=== PATIENT | male | born 1940 | race Caucasian/White ===

== ENCOUNTER 2018-08-20 05:35 | Inpatient (IN) ==
--- NOTE | 2018-08-17 13:31 | MH ---
cc: Debbie Dennis MD DATE OF ADMISSION: 08/20/2018 ADMITTING DIAGNOSIS: Osteoarthritic degeneration of left knee, now being admitted for left total knee arthroplasty. HISTORY OF PRESENT ILLNESS: This pleasant 77-year-old male is being admitted today for a left total knee arthroplasty due to severe pain from osteoarthritic degeneration. OTHER PAST HISTORY: He has a history of type 2 diabetes, hyperlipidemia, hypertension. CURRENT MEDICATIONS: 1. Atorvastatin. 2. Doxepin. 3. Finasteride. 4. Hydrochlorothiazide. 5. Verapamil. ALLERGIES: He also states he gets an allergic reaction to unknown allergens, which causes different parts of his body to swell which lasts 24 hours. PAST SURGICAL HISTORY: None. REVIEW OF SYSTEMS: Noncontributory. FAMILY HISTORY: Noncontributory. SOCIAL HISTORY: Does not smoke or drink. ALLERGIES: ALLERGIC TO IODINE AND IODINE-CONTAINING PRODUCTS. PHYSICAL EXAMINATION: GENERAL: A 77-year-old male, well developed, well nourished, alert and oriented x3, complaining of pain in the left knee. VITAL SIGNS: Blood pressure 136/80, pulse 56 and regular, respirations 12, temperature 97.7, pulse oximetry 98% on room air. HEENT: Eyes: PERRL, EOMI. Ears, nose, mouth clear. NECK: Supple. LUNGS: Clear. HEART: Regular rate. ABDOMEN: Soft, positive bowel sounds, nontender. EXTREMITIES: Reveals the left knee to be tender with crepitans on range of motion and gentle varus deformity. He is neurovascularly intact to the toes. IMPRESSION: Severe painful osteoarthritic degeneration of the left knee. PLAN: Admission for left total knee arthroplasty today. The patient plans on going to snf facility after surgical stay in the hospital. MD CHET Lobato/gume/sancho , 12:36 PM , 12:40 PM
[2018-08-20] MEDS ORDERED: Sodium Chlor 0.9% Inj 80 ML, Bupivacaine Liposo PF 1.3% Inj 20 ML, Bupivacaine PF 0.25%... P-ARTICULR SCH ×3 (06:14)
[2018-08-20] MEDS ORDERED: Sodium Chlor 0.9% Inj 500 ML IV.CONT ONE (06:15)
[2018-08-20] MEDS ORDERED: Chlorhexidine 4% Topical 120 APPLIC/120 ML Bottle TOPICAL SCH (06:15)
[2018-08-20] MEDS ORDERED: Metoprolol Tartrate 25 MG Tablet PO ONE (06:15)
[2018-08-20] MEDS ORDERED: Chlorhexidine Gluconate 2% 1 Pack (2 Cloths) TOPICAL ONE (06:15)
[2018-08-20] MEDS ORDERED: ceFAZolin Inj 20 ML ONE (06:28)
[2018-08-20] MEDS ORDERED: TRANEXAMIC ACID IV.SIG SCH (06:30)
[2018-08-20] MEDS ORDERED: SODIUM CHLOR 0.9% IV.SIG SCH (06:30)
[2018-08-20] MEDS ORDERED: ceFAZolin 2 GM Premix Inj 2 GM/50 ML PIGGYBACK IV.SIG SCH (07:00)
[2018-08-20] MEDS ORDERED: Bupivacaine 0.5% Inj 50 ML MDV Vial ONE (07:03)
[2018-08-20] MEDS ORDERED: Tetracaine PF 1% Inj 20 MG/2 ML Ampul ONE (07:23)
[2018-08-20] MEDS ORDERED: Bisacodyl 10 MG Supp RECTAL PRN (07:34)
[2018-08-20] MEDS ORDERED: Morphine Sulfate Inj 2 MG/ML Vial IV.PUSH PRN (07:34)
[2018-08-20] MEDS ORDERED: Post-op Orders (for Pharmacy) OTHER STA (07:34)
[2018-08-20] MEDS ORDERED: Tranexamic Acid Inj 1,000 MG in Sodium Chlor 0.9% Inj 100 ML IV.SIG SCH (10:00)
[2018-08-20] MEDS: hydroCHLOROthiazide 25 MG Tablet PO SCH (10:43)
[2018-08-20] MEDS: Multivitamin/Minerals Therapeutic Tablet PO SCH ×2 (10:44→22:11)
[2018-08-20] MEDS: Senna/Docusate Sodium 8.6/50 MG Tablet PO SCH ×2 (10:44→22:10)
--- NOTE | 2018-08-20 10:53 | XR ---
EXAM DATE: 08/20/2018 10:50 AM EST AGE/SEX: 77 years / Male INDICATIONS: Post-op left knee. CLINICAL DATA: This is the patient's initial encounter. Patient reports that signs and symptoms have been present for 1 day and indicates a pain score of 0/10. MEDICAL/SURGICAL HISTORY: None. None. COMPARISON: No prior exams available for comparison. FINDINGS: AP and lateral views of the knee following arthroplasty reveals a prosthesis in anatomic alignment. F racture is not appreciated. Surgical drain is evident CONCLUSION: Status post total knee arthroplasty. Carter Woodall MD FACR Electronically signed by: Carter Woodall MD Board Certified Radiologist 08/20/2018 10:52 AM EST
--- NOTE | 2018-08-20 11:36 | MP ---
cc: Debbie Dennis MD DATE OF OPERATION: 08/20/2018 Corrected Copy: 08/23/18 PREOPERATIVE DIAGNOSIS: Osteoarthritic degeneration, left knee POSTOPERATIVE DIAGNOSIS: Osteoarthritic degeneration, left knee. PROCEDURE PERFORMED: Left total knee arthroplasty using Consensus components; size 6 femur, 4 tibia, 10 standard insert and size 2 patella with 2 batches of antibiotic-impregnated Biomet cement. SURGEON: Debbie Dennis MD REAL ESTATE AGENT/BROKER: Isis Schofield APRN. ANESTHESIA: Spinal. PROCEDURE WAS FOLLOWS: After successful induction of anesthesia, the patient is placed on the operating room table in the supine position. The knee is prepped and draped in the usual manner. A tourniquet is inflated at the upper thigh and set to 300 mmHg pressure after exsanguination of the lower extremity. A longitudinal incision is made extending from 3 inches proximal to the superior pole of the patella, across the patella in longitudinal fashion, and down past the insertion of the tibial tubercle into the proximal tibia. The incision is carried down through subcutaneous tissue along the medial aspect of the patella and retinaculum, down through the capsule to expose the knee joint. The patella and patellar tendon are freed up enough to allow the patella to be inverted and retracted off the lateral side of the knee joint. The knee joint is left exposed. Small osteophytes are removed. All soft tissue is removed to allow proper position of the femoral and tibial cutting jig guide. The first femoral jig is then inserted along the distal end of the femur after first measuring to decide whether this is a small, medium, or large component. The notch is then drilled and the tibial cutting guide inserted into the femoral cutting guide, along with the ankle brace to allow for proper measurement of the tibial cutting surface that needed to be resected. Pins are inserted into the tibial cutting jig and femoral cutting jig to hold them in place. An oscillating saw is then used to resect the surface of the tibia. The surface of the tibia is then completely removed using sharp and blunt dissection. The anterior and posterior cuts of the femur are then made as well using an oscillating saw through the cutting guide. All guides are then removed and the varus/valgus angulation cutting guide applied to the femur for proper measurement of the proper amount of valgus. The anterior cutting guide for the femur is then inserted at the anterior femoral cuts made. Next, the first block trial is inserted into the femur to allow for proper condyle drill holes to be made which are then made followed by removal of the bone between the condyles using an oscillating saw as well as the bone removed at the most posterior surface of the condyle. After this, this guide is removed and the chamfer cuts made using the chamfer cutting guide from both anterior and posterior. Next, the femoral trial is then inserted, the tibial surface reflected anterior to expose the tibial surface and a tibial stem guide is inserted after first measuring for a standard, standard plus, large, or large plus surface to be used. After the stem is impacted the trial tibial surface is applied followed by the trial meniscal components. After full range of motion is found with the appropriate length meniscal components varying the patella is prepared by resecting the posterior aspect of the patella using an oscillating saw, inserting a trial. The trial is then removed and the cruciate cutting guide applied using the bur to cut the cruciate cuts. After cruciate cuts are made all trials are removed. The wound is irrigated copiously with antibiotic solution and Water Pik and the actual components inserted into place using the aforementioned components. After the cement has hardened and the components are found to have full range of motion with no instability, the tourniquet is deflated, total tourniquet time being 44 minutes at 300 mmHg pressure. The wound again is irrigated copiously with antibiotic solution, meticulous hemostasis achieved. Two Autovac tubes inserted, followed by closure of the deep fascia with both running and interrupted #1 Vicryl suture, subcutaneous tissue approximated using interrupted 2-0 Vicryl sutures, and skin approximated with tavares. Wet and dry dressing is applied to the wound followed by Xeroform gauze, sterile dressing and knee immobilizer. The patient tolerated the procedure well and left the Operating Room in satisfactory condition. ESTIMATED BLOOD LOSS: 200 mL. COUNTS: Sponge and suture counts were correct. COMPONENTS: The components used were size 6 femur, 4 tibia, 10 standard insert and size 2 patella with 2 batches of antibiotic-impregnated Biomet cement. Tourniquet is deflated, total tourniquet time being 44 minutes at 300 mmHg pressure. Meticulous hemostasis achieved; 120 mL of a mixture of Exparel with normal saline, 0.25% Marcaine plain was injected around the knee joint for extra pain control. Deep fascia approximated with running #2 Quill. Subcutaneous tissue approximated using interrupted running 2-0 and 3-0 Monocryl suture and Prineo dressing, knee immobilizer. No drain utilized. The patient tolerated the procedure well and left the operating room in satisfactory condition. Isis Schofield APRN, was present during the entire procedure to include patient positioning as well as the procedure itself. The medical necessity of the nurse practitioner certified surgical tech/first assistant was indicated in this case due to the surgical complexity of the case itself and during the surgical case, the surgical services tech was working the back table while my surgical resident CHANI was directly assisting me. J. MD CHET Sy/disha , 10:32 AM , 10:38 AM
[2018-08-20] MEDS: ceFAZolin 1 GM Premix Inj 1 GM/50 ML PIGGYBACK IV.SIG SCH ×2 (13:40→22:10)
--- NOTE | 2018-08-20 14:27 | P.BOP ---
- Preoperative Diagnosis (1) Osteoarthritis of left knee - Postoperative Diagnosis (1) Status post total left knee replacement using cement Date of procedure: 08/20/18 Procedure: Left Total Knee Arthroplasty Implants: see implant record Anesthesia: GETA Surgeon: Juan Dennis MD Auto Body Mechanic: Isis Schofield Estimated blood loss (mL): 200 Tourniquet time (min): 44 (300 mmHg) Urine output (mL): 0 (no romero) Pathology: none sent Condition: stable Disposition: PACU
--- NOTE | 2018-08-20 14:51 | P.CON ---
History of Present Illness Primary Care Provider: Vasiliy Kerr MD Chief Complaint: Left knee pain History of Present Illness: Patient is a very pleasant 77-year-old male with past medical history of hypertension, hyperlipidemia, arthritis who presented to same-day surgery for left knee surgery by Dr. Dennis. Hospitalist is consulted for evaluation of medical conditions. The patient was seen after the surgery in PACU. He is in not acute distress. Says he does not have any pain at this time. Surgery went very well. Is moving his toes. No chest pain or shortness of breath. No nausea or vomiting no diarrhea or constipation. No urinary complaints. Review of Systems All other systems reviewed negative except as stated in HPI PMFSH - History History Provided By: Patient - Medical History Medical History: Medical History (Last Reviewed 08/20/18 @ 17:59 by Nataliia Graves MD) Vertigo Wears glasses Diabetes High cholesterol Hypertension Left knee pain Prostate disorder Wears hearing aid in both ears - Surgical History Surgical History: Surgical History (Last Reviewed 08/20/18 @ 17:59 by Nataliia Graves MD) H/O hernia repair History of prostate surgery - Family History Family History: Family History (Last Updated 08/20/18 @ 18:00 by Nataliia Graves MD) Father Hypertension Stroke Heart problem - Social History I have reviewed the patient's Social History: Yes - Tobacco History Second Hand Smoke Exposure: No Tobacco Use In Past 30 Days: No Smoking Status: Never smoker - Alcohol History How Often Do You Have a Drink Containing Alcohol: Monthly or less - Substance Use History Substance History: No History of Abuse - Travel History Recent Travel in the [place] Within the Last 8 Weeks: No Recent Travel Out of the Country Within the Last 8 Weeks: No Medications and Allergies Active Medications: Active Medications Hydrocodone Bitart/Acetaminophen ([place] 7.5/325) 1 tab PO Q4H PRN PRN Reason: PAIN LESS THAN 5 ON SCALE Hydrocodone Bitart/Acetaminophen ([place] 7.5/325) 2 tab PO Q6H PRN PRN Reason: PAIN SCALE 5 TO 10 Al Hydroxide/Mg Hydroxide (Milk Of Magnesia Liq) 30 ml PO BID PRN PRN Reason: Mild Constipation Apixaban (Eliquis) 2.5 mg PO BID [facility] Aspirin (Aspirin Chew) 81 mg PO DAILY [facility] Last Admin: 08/20/18 10:43 Dose: 81 mg Atorvastatin Calcium (Lipitor) 40 mg PO HS [facility] Bisacodyl (Dulcolax Supp) 10 mg RECTAL DAILY PRN PRN Reason: SEVERE CONSITIPATION Cetirizine HCl (Zyrtec) 10 mg PO DAILY [facility] Last Admin: 08/20/18 10:44 Dose: Not Given Chlorhexidine Gluconate (Hibiclens 4% Topical) 1 applicatio TOPICAL ONCE [facility] Stop: 08/24/18 06:14 Sodium Chloride 80 ml/Bupivacaine Liposome 20 ml/Bupivacaine HCl 20 ml 0 ml P- ARTICULR ONCE [facility] Stop: 08/20/18 21:00 Last Admin: 08/20/18 09:27 Dose: 120 bag Doxepin HCl (Sinequan) 25 mg PO DAILY [facility] Last Admin: 08/20/18 10:46 Dose: Not Given Finasteride (Proscar) 5 mg PO HS [facility] Hydrochlorothiazide (Hydrodiuril) 25 mg PO DAILY [facility] Last Admin: 08/20/18 10:43 Dose: Not Given Lactated Ringer's (Lr 1000 Ml Inj) 1,000 mls @ 30 mls/hr IV.CONT .Q24H ONE Stop: 08/21/18 06:14 Last Admin: 08/20/18 06:25 Dose: 30 mls/hr Sodium Chloride (Ns Inj) 500 mls @ 30 mls/hr IV.CONT .[id number] ONE Stop: 08/20/18 22:54 Last Admin: 08/20/18 10:41 Dose: Not Given Tranexamic Acid 822 mg/ Sodium (Chloride) 108.22 mls @ 200 mls/hr IV.SIG ONCE [facility] Stop: 08/20/18 21:00 Last Infusion: 08/20/18 08:20 Dose: Infused Cefazolin Sodium/Dextrose (Ancef 2 Gm Premix Inj) 2 gm in 50 mls @ 100 mls/hr IV.SIG TELEPHONE REPAIRER [facility] Stop: 08/24/18 06:59 Last Infusion: 08/20/18 08:15 Dose: Infused Lactated Ringer's (Lr 1000 Ml Inj) 1,000 mls @ 80 mls/hr IV.CONT .[id number] [facility] Last Admin: 08/20/18 10:30 Dose: 80 mls/hr Tranexamic Acid 1,000 mg/ (Sodium Chloride) 110 mls @ 200 mls/hr IV.SIG TELEPHONE REPAIRER [facility] Stop: 08/20/18 16:00 Cefazolin Sodium/Dextrose (Ancef 1 Gm Premix Inj) 1 gm in 50 mls @ 100 mls/hr IV.SIG Q6H [facility] Stop: 08/21/18 02:29 Last Admin: 08/20/18 13:40 Dose: 100 mls/hr Lactulose (Lactulose Liq) 30 ml PO DAILY PRN PRN Reason: SEVERE CONSITIPATION Miscellaneous Information ([facility] [place] [facility] 0 each OTHER UNSCH PRN PRN Reason: SEE LABEL COMMENTS Stop: 08/21/18 09:59 Morphine Sulfate (Morphine Inj) 2 mg IV.PUSH Q3H PRN PRN Reason: BREAKTHROUGH PAIN Multivitamins/Minerals (Theragran-M) 1 tab PO BID [facility] Stop: 10/19/18 08:59 Last Admin: 08/20/18 10:44 Dose: Not Given Ondansetron HCl (Zofran Odt) 4 mg PO Q6H PRN PRN Reason: NAUSEA OR VOMITING Senna/Docusate Sodium (Nighat-Colace) 1 tab PO BID [facility] Last Admin: 08/20/18 10:44 Dose: Not Given Sennosides (Senokot) 17.2 mg PO BID PRN PRN Reason: Moderate Constipation Sodium Chloride (Ns Flush) 2 ml IV.FLUSH BID [facility] Last Admin: 08/20/18 10:44 Dose: 2 ml Sodium Chloride (Ns Flush) 2 ml IV.FLUSH PRN PRN PRN Reason: FLUSH AFTER USING IV ACCESS Verapamil HCl (Isoptin Sr) 240 mg PO DAILY@1800 [facility] Allergies Allergy/AdvReac Type Severity Reaction Status Date / Time iodine AdvReac Itching Verified 08/20/18 06:28 Home Medications Medication Instructions Recorded Confirmed Type aspirin 81 mg PO DAILY 05/14/18 08/13/18 History atorvastatin [Lipitor] 40 mg PO HS 05/14/18 08/20/18 History cetirizine 10 mg PO DAILY 05/14/18 08/20/18 History doxepin 25 mg PO DAILY 05/14/18 08/20/18 History finasteride 5 mg PO HS 05/14/18 08/20/18 History hydrochlorothiazide 25 mg PO DAILY 05/14/18 08/20/18 History verapamil 240 mg PO QPM 05/14/18 08/20/18 History Physical Exam Vital signs: Vital Signs 08/20/18 06:31 08/20/18 06:45 08/20/18 10:10 Temperature 98.4 F 97.6 F Pulse Rate 59 L 60 42 L Respiratory Rate 20 16 Blood Pressure 168/77 H 80/52 L Pulse Oximetry 96 97 08/20/18 10:15 08/20/18 10:30 08/20/18 10:45 Temperature Pulse Rate 58 L 70 60 Respiratory Rate 16 16 16 Blood Pressure 90/51 L 105/56 L 116/56 L Pulse Oximetry 08/20/18 11:00 08/20/18 11:15 08/20/18 11:30 Temperature Pulse Rate 72 62 62 Respiratory Rate 16 16 16 Blood Pressure 118/67 123/66 124/68 Pulse Oximetry 08/20/18 11:45 08/20/18 12:00 Temperature Pulse Rate 66 68 Respiratory Rate 16 16 Blood Pressure 136/67 135/70 Pulse Oximetry Intake & Output 08/19/18 08/20/18 08/20/18 18:59 06:59 18:59 Intake Total 958.22 / 958.22 Output Total 200 / 200 Balance 758.22 / 758.22 Weight 82.2 kg Intake: IV 158.22 / 158.22 Cyklokapron Inj 822 MG In NS 108.22 / 108.22 Inj 100 ML @ 200 mls/hr IV.SIG ONCE [facility] Rx#:[id number] Ancef 2 GM Premix Inj 2 gm In 50 / 50 50 ml @ 100 mls/hr IV.SIG TELEPHONE REPAIRER [facility] Rx#:[id number] Anesthesia Amount 800 / 800 Output: Estimated Blood Loss 200 / 200 Other: Weight On Admission 82.2 kg Narrative: GENERAL: Very pleasant 77-year-old male, well-nourished well-developed, appears in not acute distress. SKIN: Warm and dry. HEAD: Atraumatic. Normocephalic. EYES: Pupils equal and round. No scleral icterus. No injection or drainage. ENT: No nasal bleeding or discharge. Mucous membranes pink and moist. NECK: Trachea midline. No JVD. CARDIOVASCULAR: Regular rate and rhythm. RESPIRATORY: No accessory muscle use. Clear to auscultation. Breath sounds equal bilaterally. GASTROINTESTINAL: Abdomen soft, non-tender, nondistended. Hepatic and splenic margins not palpable. MUSCULOSKELETAL: Status post left knee surgery. Neurovascular intact. Extremities without clubbing, cyanosis, or edema. No obvious deformities. NEUROLOGICAL: Awake and alert. No obvious cranial nerve deficits. Motor grossly within normal limits. Five out of 5 muscle strength in the arms and legs. Normal speech. PSYCHIATRIC: Appropriate mood and affect; insight and judgment normal. Results - Labs Labs: Laboratory Results - last 24 hr 08/20/18 06:23 Blood Type A Positive Blood Type Recheck Required Antibody Screen Negative - Imaging Impressions Knee X-Ray 08/20/18 07:35 CONCLUSION: Status post total knee arthroplasty. Carter Woodall MD FACR Assessment and Plan - Plan Very pleasant 77-year-old male with Osteoarthritis Status post left knee arthroplasty by Dr. Dennis on Management per orthopedic doctor Hypertension. Restart home medications. Blood pressure appears stable at this time. Hyperlipidemia. Restart home medications Status post TURP. Continue Flomax. Monitor urine output. DVT prophylaxis SCDs/teds. Chemical prophylaxis per surgeon Thank you for this consultation.
[2018-08-20] MEDS: Verapamil SR 240 MG Tablet PO SCH (17:34)
[2018-08-20] MEDS: Finasteride 5 MG Tablet PO SCH (22:11)
[2018-08-21] MEDS: ceFAZolin 1 GM Premix Inj 1 GM/50 ML PIGGYBACK IV.SIG SCH (03:16)
[2018-08-21 05:42] LABS: Hematocrit 36.8 % (39.0-51.0)
--- NOTE | 2018-08-21 08:11 | P.PNOP ---
Subjective Interval history: Pt comfortable today. No complaints. Physical Exam Vital signs: Vital Signs 08/20/18 10:10 08/20/18 10:15 08/20/18 10:30 Temperature 97.6 F Pulse Rate 42 L 58 L 70 Respiratory Rate 16 16 16 Blood Pressure 80/52 L 90/51 L 105/56 L Pulse Oximetry 99 97 97 08/20/18 10:45 08/20/18 11:00 08/20/18 11:15 Temperature Pulse Rate 60 72 62 Respiratory Rate 16 16 16 Blood Pressure 116/56 L 118/67 123/66 Pulse Oximetry 96 96 96 08/20/18 11:30 08/20/18 11:45 08/20/18 12:00 Temperature Pulse Rate 62 66 68 Respiratory Rate 16 16 16 Blood Pressure 124/68 136/67 135/70 Pulse Oximetry 96 96 96 08/20/18 13:00 08/20/18 14:00 08/20/18 15:00 Temperature Pulse Rate 70 62 72 Respiratory Rate 16 16 16 Blood Pressure 142/70 H 131/65 156/73 H Pulse Oximetry 97 95 96 08/20/18 16:00 08/20/18 17:21 08/20/18 20:15 Temperature 97.7 F 97.4 F L Pulse Rate 74 73 64 Respiratory Rate 16 18 17 Blood Pressure 143/73 H 155/77 H 151/73 H Pulse Oximetry 96 94 L 95 08/21/18 00:40 08/21/18 05:00 Temperature 97.7 F 97.6 F Pulse Rate 58 L 52 L Respiratory Rate 16 17 Blood Pressure 130/70 115/58 L Pulse Oximetry 95 95 Intake & Output 08/20/18 08/21/18 08/21/18 18:59 06:59 18:59 Intake Total 1008.22 / 1008.22 1650 / 1650 Output Total 950 / 950 770 / 770 Balance 58.22 / 58.22 880 / 880 Weight 82.2 kg 82.2 kg Intake: IV 208.22 / 208.22 1050 / 1050 LR 1000 mL Inj 1,000 ML @ 80 1000 / 1000 mls/hr IV.CONT .[id number] [facility] Rx# :[id number] Cyklokapron Inj 822 MG In NS 108.22 / 108.22 Inj 100 ML @ 200 mls/hr IV.SIG ONCE [facility] Rx#:[id number] Ancef 1 GM Premix Inj 1 gm In 50 / 50 50 / 50 50 ml @ 100 mls/hr IV.SIG Q6H [facility] Rx#:[id number] Ancef 2 GM Premix Inj 2 gm In 50 / 50 50 ml @ 100 mls/hr IV.SIG NEUROSCIENCE SPECIALIST [facility] Rx#:[id number] Oral 600 / 600 Anesthesia Amount 800 / 800 Output: Urine 750 / 750 770 / 770 Estimated Blood Loss 200 / 200 Other: Date of Last Bowel Movement 08/20/18 08/20/18 # Bowel Movements 0 - Constitutional no acute distress Results - Labs CBC & Chem 7: 08/21/18 04:50 Laboratory Results - last 24 hr 08/21/18 04:50 Hgb 13.0 Hct 36.8 L - Imaging Impressions Knee X-Ray 08/20/18 07:35 CONCLUSION: Status post total knee arthroplasty. Carter Woodall MD FACR Assessment and Plan - Attending Attestation Attending Attestation: Dressing dry and intact. NV intact to toes. Doing well. PT today. Plan SNF soon.
[2018-08-21] MEDS: Senna/Docusate Sodium 8.6/50 MG Tablet PO SCH ×2 (08:45→21:52)
[2018-08-21] MEDS: Multivitamin/Minerals Therapeutic Tablet PO SCH ×2 (08:45→21:52)
[2018-08-21] MEDS: hydroCHLOROthiazide 25 MG Tablet PO SCH (08:46)
[2018-08-21] MEDS: Verapamil SR 240 MG Tablet PO SCH (17:15)
--- NOTE | 2018-08-21 17:44 | P.PNIM ---
Subjective Interval history: Patient is seen resting comfortably in bed. Reports that his knee has some pain but that it is well controlled. No chest pain or shortness of breath. No fever or chills. No nausea vomiting or diarrhea. He is doing PT. Physical Exam Vital signs: Last Vital Signs Temp 97.2 F L 08/21/18 17:14 Pulse 67 08/21/18 17:14 Resp 18 08/21/18 17:14 BP 138/64 08/21/18 17:14 Pulse Ox 97 08/21/18 17:14 Intake & Output 08/19/18 08/20/18 08/21/18 08/22/18 06:59 06:59 06:59 06:59 Intake Total 2658.22 / 2658.22 Output Total 1720 / 1720 Balance 938.22 / 938.22 Weight 82.2 kg 82.2 kg Narrative: GENERAL: Well-nourished, well-developed adult male in no obvious distress. SKIN: Warm and dry. HEAD: Atraumatic. Normocephalic. CARDIOVASCULAR: Regular rate and rhythm. RESPIRATORY: No accessory muscle use. Clear to auscultation. Breath sounds equal bilaterally. GASTROINTESTINAL: Abdomen soft, non-tender, non-distended. Positive bowel sounds. MUSCULOSKELETAL: Extremities without clubbing, cyanosis, or edema. No obvious deformities. Left knee surgical dressing and Dani wrap intact. No obvious drainage. Toes warm and well perfused. NEUROLOGICAL: Awake and alert. No obvious cranial nerve deficits. Motor grossly within normal limits. Normal speech. PSYCHIATRIC: Appropriate mood and affect; insight and judgment good. Results Labs CBC & Chem 7: 08/21/18 04:50 Assessment and Plan Plan Patient is a very pleasant 77-year-old male with past medical history of hypertension, hyperlipidemia, arthritis who presented to same-day surgery for left knee surgery by Dr. Dennis. Hospitalist is consulted for evaluation of medical conditions. Osteoarthritis Status post left knee arthroplasty by Dr. Dennis on Management per orthopedic doctor Hypertension. Restart home medications. Blood pressure appears stable at this time. Hyperlipidemia. Restart home medications Status post TURP. Continue Flomax. Monitor urine output. DVT prophylaxis SCDs/teds. Chemical prophylaxis per surgeon Discharge planning: Possibly Monday to rehab Progress Note: Quality VTE Deep Vein Thrombosis/Pulmonary Embolism Present on Admission: No
[2018-08-21] MEDS: Finasteride 5 MG Tablet PO SCH (21:51)
[2018-08-22 05:37] LABS: Hemoglobin 13.1 gm/dL (13.0-17.0)
[2018-08-22] MEDS: hydroCHLOROthiazide 25 MG Tablet PO SCH (08:04)
[2018-08-22] MEDS: Multivitamin/Minerals Therapeutic Tablet PO SCH ×2 (08:04→21:25)
[2018-08-22] MEDS: Senna/Docusate Sodium 8.6/50 MG Tablet PO SCH ×2 (08:04→21:26)
--- NOTE | 2018-08-22 08:18 | P.PNOP ---
Subjective Interval history: Patient basically comfortable with no complaints today. He states he had an episode of passing out yesterday but feels much better today. Physical Exam Vital signs: Vital Signs 08/21/18 08:40 08/21/18 12:48 08/21/18 17:14 Temperature 97.4 F L 97.3 F L 97.2 F L Pulse Rate 56 L 61 67 Respiratory Rate 16 16 18 Blood Pressure 134/68 143/67 H 138/64 Pulse Oximetry 95 95 97 08/21/18 20:20 08/22/18 00:25 08/22/18 04:30 Temperature 97.8 F 97.8 F 97.8 F Pulse Rate 62 57 L 55 L Respiratory Rate 17 16 16 Blood Pressure 140/70 131/66 129/62 Pulse Oximetry 93 L 93 L 92 L Intake & Output 08/21/18 08/22/18 08/22/18 18:59 06:59 18:59 Intake Total 480 / 480 Output Total 950 / 950 400 / 400 Balance -950 / -950 80 / 80 Weight 82.2 kg Intake: Oral 480 / 480 Output: Urine 950 / 950 400 / 400 Other: Date of Last Bowel Movement 08/20/18 08/20/18 # Bowel Movements 0 - Constitutional no acute distress Results - Labs CBC & Chem 7: 08/22/18 04:58 Laboratory Results - last 24 hr 08/22/18 04:58 Hgb 13.1 Hct 37.0 L Assessment and Plan - Attending Attestation Attending Attestation: Patient is doing well today. No calf tenderness. He is neurovascular intact to his toes and dressing is dry and intact. Plan is for patient to get physical therapy in the hospital until he is ready for discharge to [facility] the end of this week.
--- NOTE | 2018-08-22 14:33 | P.PNIM ---
Subjective Interval history: Patient is seen sitting up in bed after finishing breakfast. He has no new complaints. Has not yet been out of bed to work with physical therapy. No chest pain or shortness of breath. No fever or chills. No nausea vomiting or diarrhea. Updated after patient seen by physical therapy: Became hypotensive and shaky and was transferred back to bed after trying to sit up in chair. Given fluid bolus. Quickly recovered. Physical Exam Vital signs: Last Vital Signs Temp 97.7 F 08/22/18 12:00 Pulse 57 L 08/22/18 12:00 Resp 16 08/22/18 12:00 BP 136/65 08/22/18 12:00 Pulse Ox 96 08/22/18 12:00 Intake & Output 08/20/18 08/21/18 08/22/18 08/23/18 06:59 06:59 06:59 06:59 Intake Total 2708.22 / 2708.22 1480 / 1480 Output Total 1720 / 1720 1350 / 1350 Balance 988.22 / 988.22 130 / 130 Weight 82.2 kg 82.2 kg 82.2 kg Narrative: GENERAL: Well-nourished, well-developed adult male in no obvious distress. SKIN: Warm and dry. HEAD: Atraumatic. Normocephalic. CARDIOVASCULAR: Regular rate and rhythm. RESPIRATORY: No accessory muscle use. Clear to auscultation. Breath sounds equal bilaterally. GASTROINTESTINAL: Abdomen soft, non-tender, non-distended. Positive bowel sounds. MUSCULOSKELETAL: Extremities without clubbing, cyanosis, or edema. No obvious deformities. Left knee surgical dressing and Dani wrap intact. No obvious drainage. Toes warm and well perfused. NEUROLOGICAL: Awake and alert. No obvious cranial nerve deficits. Motor grossly within normal limits. Normal speech. PSYCHIATRIC: Appropriate mood and affect; insight and judgment good. Results Labs CBC & Chem 7: 08/22/18 04:58 Assessment and Plan Plan Patient is a very pleasant 77-year-old male with past medical history of hypertension, hyperlipidemia, arthritis who presented to same-day surgery for left knee surgery by Dr. Dennis. Hospitalist is consulted for evaluation of medical conditions. Osteoarthritis Status post left knee arthroplasty by Dr. Dennis on Management per orthopedic doctor Hypertension with episodes of hypotension -Restarted home medications; BP is 130s systolic in bed -Intensely hypotensive with standing; denies history of similar -Possibly related to pain medication; attempt to wean -Teds on at all time; add abdominal binder when attempting to stand Hyperlipidemia. -Restart home medications Status post TURP. -Continue Flomax. Monitor urine output. DVT prophylaxis SCDs/teds. Chemical prophylaxis per surgeon Discharge planning: Possibly Monday to rehab Progress Note: Quality VTE Deep Vein Thrombosis/Pulmonary Embolism Present on Admission: No
[2018-08-22] MEDS: Verapamil SR 240 MG Tablet PO SCH (17:26)
[2018-08-22] MEDS: Finasteride 5 MG Tablet PO SCH (21:26)
--- NOTE | 2018-08-23 08:35 | P.PNOP ---
Subjective Interval history: Pt comfortable without complaints. Ready for SNF. Physical Exam Vital signs: Vital Signs 08/22/18 10:40 08/22/18 10:49 08/22/18 11:08 Temperature Pulse Rate 58 L 53 L Respiratory Rate 16 16 Blood Pressure 65/44 L 97/52 L 137/65 Pulse Oximetry 08/22/18 12:00 08/22/18 16:00 08/22/18 20:25 Temperature 97.7 F 98.5 F 97.4 F L Pulse Rate 57 L 68 74 Respiratory Rate 16 16 18 Blood Pressure 136/65 134/96 H 144/70 H Pulse Oximetry 96 96 95 08/23/18 00:00 08/23/18 05:00 Temperature 98 F 97.2 F L Pulse Rate 60 62 Respiratory Rate 18 18 Blood Pressure 125/63 141/66 H Pulse Oximetry 95 95 Intake & Output 08/22/18 08/23/18 08/23/18 18:59 06:59 18:59 Intake Total 480 / 480 120 / 120 Output Total 900 / 900 400 / 400 Balance -420 / -420 -280 / -280 Weight 83.8 kg Intake: Oral 480 / 480 120 / 120 Output: Urine 900 / 900 400 / 400 Other: Date of Last Bowel Movement 08/20/18 08/20/18 - Constitutional no acute distress Results - Labs CBC & Chem 7: 08/22/18 04:58 Assessment and Plan - Attending Attestation Attending Attestation: NV intact. No calf tenderness. Wound healing well. Plan for dc to SNF when bed available. Cont PT for now.
[2018-08-23] MEDS: hydroCHLOROthiazide 25 MG Tablet PO SCH (08:49)
[2018-08-23] MEDS: Senna/Docusate Sodium 8.6/50 MG Tablet PO SCH ×2 (08:50→20:18)
--- NOTE | 2018-08-23 08:55 | MD ---
cc: Debbie Dennis MD DATE OF DISCHARGE: ADMITTING DIAGNOSIS: Osteoarthritic degeneration, left knee. DISCHARGE DIAGNOSIS: Osteoarthritic degeneration, left knee. DISCHARGE SUMMARY: This pleasant 77-year-old male who was admitted on 08/20/2018 with severe osteoarthritic degeneration of the left knee with genu varus deformity for which he underwent a total knee arthroplasty. He received a course of prophylactic IV antibiotics within 23 hours, started on anticoagulation therapy. He continued to improve, tolerating food and fluid well, switched to p.o. pain medications with no problem. Continued physical therapy and weightbear to tolerance and was discharged to a intermediate facility. Discharge order given on 08/23/2018. Discharged in good condition with instructions for continuation care at intermediate facility and follow up in the office for recheck. The patient discharged on p.o. pain meds. J. Wilberto Dennis MD JRR/ts , 08:37 AM , 08:42 AM
[2018-08-23] MEDS ORDERED: Sodium Chlor 0.9% Inj 1,000 ML IV.SIG SCH (11:16)
[2018-08-23] MEDS: Multivitamin/Minerals Therapeutic Tablet PO SCH ×2 (11:20→20:18)
[2018-08-23 12:30] LABS: Calcium 8.7 mg/dL (8.5-10.1); Carbon Dioxide 35.5 meq/L (21.0-32.0); Potassium 3.2 meq/L (3.5-5.1)
[2018-08-23] MEDS: Verapamil SR 240 MG Tablet PO SCH (18:15)
--- NOTE | 2018-08-23 19:46 | P.PNIM ---
Subjective Interval history: Patient is seen sitting up in bed. He reports that he is doing well with the exception of the extreme orthostatic hypertension. Has not yet been up out of bed today. Tells me he has never had anything like this before. Discussed combination of possible dehydration as well as pain meds as possible cause. Physical Exam Vital signs: Last Vital Signs Temp 98.2 F 08/23/18 16:00 Pulse 64 08/23/18 16:00 Resp 18 08/23/18 16:00 BP 145/68 H 08/23/18 16:00 Pulse Ox 93 L 08/23/18 16:00 Intake & Output 08/21/18 08/22/18 08/23/18 08/24/18 06:59 06:59 06:59 06:59 Intake Total 2708.22 / 2708.22 1480 / 1480 600 / 600 1000 / 1000 Output Total 1720 / 1720 1350 / 1350 1300 / 1300 Balance 988.22 / 988.22 130 / 130 -700 / -700 1000 / 1000 Weight 82.2 kg 82.2 kg 83.8 kg Narrative: GENERAL: Well-nourished, well-developed adult male in no obvious distress. SKIN: Warm and dry. HEAD: Atraumatic. Normocephalic. CARDIOVASCULAR: Regular rate and rhythm. RESPIRATORY: No accessory muscle use. Clear to auscultation. Breath sounds equal bilaterally. GASTROINTESTINAL: Abdomen soft, non-tender, non-distended. Positive bowel sounds. MUSCULOSKELETAL: Extremities without clubbing, cyanosis, or edema. No obvious deformities. Left knee surgical dressing and Dani wrap intact. No obvious drainage. Toes warm and well perfused. NEUROLOGICAL: Awake and alert. No obvious cranial nerve deficits. Motor grossly within normal limits. Normal speech. PSYCHIATRIC: Appropriate mood and affect; insight and judgment good. Results Labs CBC & Chem 7: 08/22/18 04:58 08/23/18 11:47 Assessment and Plan Plan Patient is a very pleasant 77-year-old male with past medical history of hypertension, hyperlipidemia, arthritis who presented to same-day surgery for left knee surgery by Dr. Dennis. Hospitalist is consulted for evaluation of medical conditions. Osteoarthritis Status post left knee arthroplasty by Dr. Dennis on Management per orthopedic doctor Hypertension with episodes of hypotension -Restarted home medications; BP is 130s+ systolic in bed -Intensely hypotensive with standing; denies history of similar -Possibly related to pain medication; attempt to wean -Bolus 1 L NS prior to mobilizing today. -Teds on at all time; add abdominal binder when attempting to stand Hyperlipidemia. -Restart home medications Status post TURP. -Continue Flomax. Monitor urine output. DVT prophylaxis SCDs/teds. Chemical prophylaxis per surgeon Discharge planning: Possibly Monday to rehab Progress Note: Quality VTE Deep Vein Thrombosis/Pulmonary Embolism Present on Admission: No
[2018-08-23] MEDS: Finasteride 5 MG Tablet PO SCH (20:19)
[2018-08-24] MEDS: Senna/Docusate Sodium 8.6/50 MG Tablet PO SCH ×2 (09:43→21:00)
[2018-08-24] MEDS: Multivitamin/Minerals Therapeutic Tablet PO SCH ×2 (09:43→21:00)
--- NOTE | 2018-08-24 10:02 | P.PN ---
Subjective Interval history: Follow-up visit for left knee arthroplasty and orthostatic hypotension. Patient is seen and examined sitting up in bed in no acute distress. Reports some urinary hesitancy earlier today, nurse also notes bladder scan greater than 800 mL's of urine. Patient denies any fevers, chills, nausea, vomiting, diarrhea, cough, shortness of breath or chest pain. He endorses some dizziness and lightheadedness yesterday when sitting up with physical therapy. Waiting for abdominal binder this morning to attempt out of bed therapy. Discussed with patient holding hydrochlorothiazide and decreasing verapamil 180 mg. Physical Exam Vital signs: Vital Signs 08/23/18 11:00 08/23/18 12:00 08/23/18 16:00 Temperature 98.6 F 98.2 F Pulse Rate 76 64 Respiratory Rate 18 18 Blood Pressure 67/48 L 145/64 H 145/68 H Pulse Oximetry 94 L 93 L 08/23/18 20:45 08/24/18 00:23 08/24/18 04:20 Temperature 98.2 F 97.5 F L 97.2 F L Pulse Rate 70 67 52 L Respiratory Rate 18 18 18 Blood Pressure 139/72 126/61 122/58 L Pulse Oximetry 95 95 95 08/24/18 08:00 Temperature 97.6 F Pulse Rate 53 L Respiratory Rate 19 Blood Pressure 136/65 Pulse Oximetry 91 L Intake & Output 08/23/18 08/24/18 08/24/18 18:59 06:59 18:59 Intake Total 1000 / 1000 120 / 120 Output Total 500 / 500 Balance 1000 / 1000 -380 / -380 Weight 85.1 kg Intake: IV 1000 / 1000 NS Inj 1,000 ML @ 1000 mls/hr 1000 / 1000 IV.SIG BOLUS JESSICA Rx#:[id number] Oral 120 / 120 Other 0 / 0 Output: Urine 500 / 500 Other: Other Intake Source Saline Solution # Voids 3 Date of Last Bowel Movement 08/23/18 # Bowel Movements 0 Narrative: GENERAL: Well-nourished, well-developed adult male in no acute distress. SKIN: Warm and dry. HEAD: Atraumatic. Normocephalic. CARDIOVASCULAR: Regular rate and rhythm. RESPIRATORY: No accessory muscle use. Clear to auscultation. Breath sounds equal bilaterally. GASTROINTESTINAL: Abdomen soft, non-tender, non-distended. + bowel sounds. MUSCULOSKELETAL: Extremities without clubbing, cyanosis, or edema. No obvious deformities. Left knee surgical dressing and Dani wrap intact. + Foot movement, + pedal pulses, sensation WNL. NEUROLOGICAL: Awake and alert. No obvious cranial nerve deficits. Motor grossly within normal limits. Normal speech. PSYCHIATRIC: Appropriate mood and affect; insight and judgment good. Results - Labs CBC & Chem 7: 08/22/18 04:58 08/23/18 11:47 Laboratory Results - last 24 hr 08/23/18 11:47 Sodium 138 Potassium 3.2 L Chloride 98 Carbon Dioxide 35.5 H Anion Gap 5 BUN 20 H Creatinine 1.08 Estimated GFR 66 L Random Glucose 162 H Calcium 8.7 Assessment and Plan - Plan Patient is a very pleasant 77-year-old male with past medical history of hypertension, hyperlipidemia, arthritis who presented to same-day surgery for left knee surgery by Dr. Dennis. Hospitalist is consulted for evaluation of medical conditions. Osteoarthritis Status post left knee arthroplasty by Dr. Dennis on Management per orthopedic doctor Hypertension with orthostatic hypotension - s/p 1L NS bolus, continues to be symptomatic. -Hold hydrochlorothiazide, decrease verapamil dose to 180 mg. -Possibly related to pain medication, wean as tolerated. -Check sitting BPs and treat the use. -Continue PT mobilization, SHIRLENE hose and abdominal binder when standing. Hyperlipidemia. -Continue Lipitor Status post TURP. Urinary hesitancy/retention -Continue Flomax. Monitor urine output. -Likely secondary to pain medication, trial of bethanechol -Bladder scan and straight cath as needed DVT prophylaxis SCDs/teds. Chemical prophylaxis per surgeon Discussed Condition With: Patient and RN
--- NOTE | 2018-08-24 14:18 | P.PNOP ---
Subjective Interval history: Pt comfortable but still having orthostatic hypotension. Physical Exam Vital signs: Vital Signs 08/23/18 16:00 08/23/18 20:45 08/24/18 00:23 Temperature 98.2 F 98.2 F 97.5 F L Pulse Rate 64 70 67 Respiratory Rate Blood Pressure 145/68 H 139/72 126/61 Pulse Oximetry 93 L 95 95 08/24/18 04:20 08/24/18 08:00 08/24/18 12:00 Temperature 97.2 F L 97.6 F 97.7 F Pulse Rate 52 L 53 L 87 Respiratory Rate Blood Pressure 122/58 L 136/65 132/59 L Pulse Oximetry 95 91 L 93 L Intake & Output 08/23/18 08/24/18 08/24/18 18:59 06:59 18:59 Intake Total 1000 / 1000 120 / 120 Output Total 500 / 500 Balance 1000 / 1000 -380 / -380 Weight 85.1 kg Intake: IV 1000 / 1000 NS Inj 1,000 ML @ 1000 mls/hr 1000 / 1000 IV.SIG BOLUS JESSICA Rx#:[id number] Oral 120 / 120 Other 0 / 0 Output: Urine 500 / 500 Other: Other Intake Source Saline Solution # Voids 3 Date of Last Bowel Movement 08/23/18 # Bowel Movements 0 - Constitutional no acute distress Results - Labs CBC & Chem 7: 08/22/18 04:58 08/23/18 11:47 Assessment and Plan - Attending Attestation Attending Attestation: Wound is clean and dry. NV intact. No calf tenderness. Orthopedically doing well. Plan for DC to SNF when medically stable.
[2018-08-24] MEDS: Finasteride 5 MG Tablet PO SCH (21:00)
[2018-08-25] MEDS: Multivitamin/Minerals Therapeutic Tablet PO SCH (08:07)
[2018-08-25] MEDS: Senna/Docusate Sodium 8.6/50 MG Tablet PO SCH (08:09)
--- NOTE | 2018-08-25 10:18 | P.PN ---
Subjective Interval history: Follow-up visit for left total knee arthroplasty and orthostatic hypotension. Patient seen and examined sitting up in bed in no cute distress. He reports that yesterday he was able to get up with physical therapy and was asymptomatic with no reports of syncope or hypotension. Patient states he has been voiding without any dysuria or hesitancy, managed to move his bowels yesterday as well. Denies any fevers, chills, nausea, vomiting or diarrhea. He is ready to go to rehab today. Physical Exam Vital signs: Vital Signs 08/24/18 12:00 08/24/18 16:00 08/24/18 19:59 Temperature 97.7 F 98.5 F 97.9 F Pulse Rate 87 69 73 Respiratory Rate Blood Pressure 132/59 L 144/69 H 131/68 Pulse Oximetry 93 L 91 L 94 L 08/25/18 00:51 08/25/18 03:31 08/25/18 08:00 Temperature 98.2 F 98.1 F 97.8 F Pulse Rate 65 77 69 Respiratory Rate 18 Blood Pressure 151/72 H 148/71 H 127/59 L Pulse Oximetry 95 94 L 94 L 08/25/18 08:37 Temperature Pulse Rate Respiratory Rate Blood Pressure 122/60 Pulse Oximetry Intake & Output 08/24/18 08/25/18 08/25/18 18:59 06:59 18:59 Intake Total 480 / 480 Output Total 1650 / 1650 350 / 350 300 / 300 Balance -1650 / -1650 130 / 130 -300 / -300 Weight 85.1 kg Intake: Oral 480 / 480 Output: Urine 1650 / 1650 350 / 350 300 / 300 Other: Date of Last Bowel Movement 08/25/19 # Bowel Movements 1 Narrative: GENERAL: Well-nourished, well-developed adult male in no acute distress. SKIN: Warm and dry. HEAD: Atraumatic. Normocephalic. CARDIOVASCULAR: Regular rate and rhythm. RESPIRATORY: No accessory muscle use. Clear to auscultation. Breath sounds equal bilaterally. GASTROINTESTINAL: Abdomen soft, non-tender, non-distended. + bowel sounds. MUSCULOSKELETAL: Extremities without clubbing, cyanosis, or edema. No obvious deformities. Left knee surgical incision well approximated, no drainage with trace edema. + Foot movement,+ pedal pulses, sensation WNL. NEUROLOGICAL: Awake and alert. No obvious cranial nerve deficits. Motor grossly within normal limits. Normal speech. PSYCHIATRIC: Appropriate mood and affect; insight and judgment good. Results - Labs CBC & Chem 7: 08/22/18 04:58 08/25/18 08:19 Laboratory Results - last 24 hr 08/25/18 08:19 Potassium 3.8 Assessment and Plan - Plan Patient is a very pleasant 77-year-old male with past medical history of hypertension, hyperlipidemia, arthritis who presented to same-day surgery for left knee surgery by Dr. Dennis. Hospitalist is consulted for evaluation of medical conditions. Osteoarthritis Status post left knee arthroplasty by Dr. Dennis on Management per orthopedic doctor Hypertension with orthostatic hypotension, resolved -Treated with fluid bolus days earlier, able to tolerate therapy yesterday with no symptoms. -Continue to hold hydrochlorothiazide, continue lower dose of verapamil 180 mg. -Blood pressure stable. -Continue PT mobilization, SHIRLENE hose and abdominal binder when standing. Hyperlipidemia. -Continue Lipitor Status post TURP. Urinary hesitancy/retention, resolved -Continue Flomax. Monitor urine output. -Likely secondary to pain medication, trial of bethanechol -Voiding without any issues. DVT prophylaxis SCDs/teds. Eliquis per orthopedic surgeon. Patient stable yesterday as well as this morning with no further episodes of symptomatic hypotension. Stable for discharge to [facility] facility, update on verapamil dose and discontinuation of hydrochlorothiazide entered in his medication reconciliation. Discussed Condition With: Patient and RN
--- NOTE | 2018-08-25 12:53 | P.PNOP ---
Subjective Interval history: Pt comfortable without complaints of pain today. Physical Exam Vital signs: Vital Signs 08/24/18 16:00 08/24/18 19:59 08/25/18 00:51 Temperature 98.5 F 97.9 F 98.2 F Pulse Rate 69 73 65 Respiratory Rate 21 18 18 Blood Pressure 144/69 H 131/68 151/72 H Pulse Oximetry 91 L 94 L 95 08/25/18 03:31 08/25/18 08:00 08/25/18 08:37 Temperature 98.1 F 97.8 F Pulse Rate 77 69 Respiratory Rate 18 18 Blood Pressure 148/71 H 127/59 L 122/60 Pulse Oximetry 94 L 94 L Intake & Output 08/24/18 08/25/18 08/25/18 18:59 06:59 18:59 Intake Total 480 / 480 240 / 240 Output Total 1650 / 1650 350 / 350 600 / 600 Balance -1650 / -1650 130 / 130 -360 / -360 Weight 85.1 kg Intake: Oral 480 / 480 240 / 240 Output: Urine 1650 / 1650 350 / 350 600 / 600 Other: Date of Last Bowel Movement 08/25/19 # Bowel Movements 1 - Constitutional no acute distress Results - Labs CBC & Chem 7: 08/22/18 04:58 08/25/18 08:19 Laboratory Results - last 24 hr 08/25/18 08:19 Potassium 3.8 Assessment and Plan - Attending Attestation Attending Attestation: Sitting up in chair. NV intact. No calf tenderness. Wound healing well. Plan to dc to SNF today. Cont PT Appt to see Dr Dennis next week.
--- NOTE | 2018-08-25 13:40 | MD ---
cc: Debbie Dennis MD DATE OF DISCHARGE: 08/25/2018 ADMITTING DIAGNOSIS: Osteoarthritic degeneration, left knee. DISCHARGE DIAGNOSIS: Osteoarthritic degeneration. DISCHARGE SUMMARY: This is a pleasant 77-year-old male who was admitted on 08/20/2018 with severe painful osteoarthritic degeneration of the left knee, at which time he underwent a left total knee arthroplasty. He received a course of prophylactic IV antibiotics and within 23 hours started on anticoagulation therapy. He continued to improve, tolerating food and fluids well, but had a hard time with therapy because he had some orthostatic hypotension, which was taken care of by a primary care physician under consult. Once he was an abdominal binder his blood pressure remained stable and he was able to do physical therapy without a problem. He continued to improve, remaining afebrile, vital signs stable, neurovascularly intact and was discharged on 08/23/2018-18 to residential facility for continuation of care and follow up in the office for recheck. The patient discharged with a prescription for pain medication as well as continuation of his anticoagulation therapy. Discharged in good condition. Debbie Dennis MD [id number]/[id number] , 12:55 PM , 01:00 PM
== END 2018-08-25 14:36 ==
LOC: HSDC 05:35 → HSDI 05:35 → EDSTATUS 07:30 → N06 16:17
PROVIDERS: ADMIT Surgery; ATTEND Surgery